=== PATIENT | female | born 1980 | race Caucasian/White ===

== ENCOUNTER 2017-12-03 05:31 | Day surgery (SDC) | payer OTHER ==
[2017-12-03] MEDS ORDERED: GLYCOPYRROLATE 0.4 MG INJ (06:16)
[2017-12-03] MEDS ORDERED: LIDOCAINE 2% (SDV) 5 ML INJ (06:16)
[2017-12-03] MEDS ORDERED: MIDAZOLAM 1 MG/ML 2 ML INJ (06:16)
[2017-12-03] MEDS ORDERED: FENTAnyl 50 MCG/ML VIAL (06:16)
[2017-12-03] MEDS ORDERED: PROPOFOL 20 ML (06:16)
[2017-12-03] MEDS ORDERED: ROCURONIUM 50 MG INJ (06:16)
[2017-12-03] MEDS ORDERED: NEOSTIGMINE 3 MG/3 ML SYRINGE (06:16)
[2017-12-03] MEDS ORDERED: ONDANSETRON 4 MG INJ (06:17)
[2017-12-03] MEDS ORDERED: DEXAMETHASONE 4 MG/ML 1 ML INJ (06:17)
[2017-12-03] MEDS ORDERED: NALOXONE (0.4 MG/ML) INJ IV (06:30)
[2017-12-03] MEDS: LACTATED RINGER'S 1,000 ML IV* (06:41)
[2017-12-03] MEDS: CEFAZOLIN 2 GM/50 ML (PMX) 50 ML IVPB (06:41)
[2017-12-03] MEDS ORDERED: SUCCINYLCHOLINE CHLORIDE 100 MG/5 ML SYG IV (07:00)
[2017-12-03] MEDS ORDERED: THROMBIN 5000 UNIT VIAL (07:36)
[2017-12-03] MEDS: BUPIVACAINE 0.25% (MPF) 30 ML INJ (07:36)
[2017-12-03] MEDS: POLYMYXIN/BACITRACIN 1L IRRIG (07:36)
[2017-12-03] MEDS ORDERED: GELATIN SIZE 100 SPONGE (07:36)
[2017-12-03] MEDS ORDERED: FLUMAZENIL 0.5 MG INJ (08:24)
[2017-12-03] MEDS ORDERED: MEPERIDINE 25 MG INJ (09:21)
[2017-12-03] MEDS ORDERED: FENTAnyl 50 MCG/ML VIAL IV (09:30)
[2017-12-03] MEDS ORDERED: DIPHENHYDRAMINE 50 MG INJ IV (09:30)
[2017-12-03] MEDS ORDERED: morphine (1 MG/ML) 10ML SYRINGE IV ×2 (09:30)
[2017-12-03] MEDS ORDERED: HYDROmorphONE 1 MG/5 ML IV SYRINGE IV (09:30)
[2017-12-03] MEDS ORDERED: OXYCODONE/ACETAMINOPHEN (5/325) TAB PO (09:30)
[2017-12-03] MEDS: MEPERIDINE 25 MG INJ IV (09:32)
[2017-12-03] MEDS: HYDROmorphONE 1 MG/5 ML IV SYRINGE IV ×2 (09:33→09:41)
[2017-12-03] MEDS: FENTAnyl 50 MCG/ML VIAL IV (09:56)
[2017-12-03] MEDS: ONDANSETRON 4 MG INJ IV ×2 (09:58→12:23)
[2017-12-03] MEDS: METOCLOPRAMIDE 10 MG INJ IV (10:21)
[2017-12-03] MEDS: OXYCODONE/ACETAMINOPHEN (5/325) TAB PO (10:43)
== END 2017-12-03 13:08 | disposition home or self-care (01) ==
LOC: SDS 05:31
DX: M51.26 Other intervertebral disc displacement, lumbar region (principal); I10 Essential (primary) hypertension; J45.909 Unspecified asthma, uncomplicated; E03.9 Hypothyroidism, unspecified
CPT/HCPCS: 63030; 72020; 86850; 86900; 86901; 86920; 97161